=== PATIENT | male | born 1940 | race Caucasian/White ===

== ENCOUNTER 2022-11-20 07:50 | Inpatient (IN) | payer OTHER ==
[2022-11-20 08:11] VITALS: BMI 23.5
[2022-11-20] MEDS ORDERED: ACETAMINOPHEN 1000 MG/100 ML BAG IVPB ONE (08:32)
[2022-11-20] MEDS ORDERED: LACTATED RINGERS SOLUTION 1,000 ML/1,000 ML INFUS.BAG IV STA (08:32)
[2022-11-20] MEDS ORDERED: ACETAMINOPHEN INJECTION 100 ML IVPB ONE (08:44)
[2022-11-20 09:15] LABS: BASO % 0.3 % (0-2.0); EOS % 0.9 % (0-4.5); HEMATOCRIT 38.4 % (35.4-49); HEMOGLOBIN 12.8 GM/dL (11.7-16.9); MCH 30.4 pg (25.7-33.7); MCHC 33.3 g/dl (32.0-35.9); MEAN CELL VOLUME 91.4 fl (80-96); MEAN PLT VOLUME 9.2 fl (7.5-11.1); MONO % 5.2 % (3.8-10.2); NEUT % 89.6 % (42.8-82.8); PLATELET COUNT 127 10^3/uL (134-434); RBC 4.19 M/mm3 (4.00-5.60); RDW 12.6 % (11.9-15.9); WHITE BLOOD COUNT 13.3 K/mm3 (4.0-10.0)
[2022-11-20 09:25] LABS: INR 1.17 (0.83-1.09); PROTHROMBIN TIME (PATIENT) 13.5 SEC (9.7-13.0)
[2022-11-20 09:38] LABS: ALBUMIN 3.6 g/dl (3.4-5.0); BLOOD UREA NITROGEN 45.7 mg/dL (7-18); CALCIUM 9.3 mg/dL (8.5-10.1); POTASSIUM 5.1 mmol/L (3.5-5.1)
[2022-11-20 09:41] LABS: CREATININE 1.9 mg/dL (0.55-1.3)
[2022-11-20 09:43] LABS: BILIRUBIN,TOTAL 1.1 mg/dL (0.2-1); TOT PROT 6.6 g/dl (6.4-8.2)
[2022-11-20] MEDS ORDERED: DEXTROSE 5%-0.45% SALINE 1,000 ML IV SCH (10:30)
[2022-11-20] MEDS ORDERED: ACETAMINOPHEN 1000 MG/100 ML BAG IVPB PRN (10:37)
[2022-11-20] MEDS ORDERED: PANTOPRAZOLE SODIUM 40 MG VIAL IVPUSH SCH (10:45)
[2022-11-20] MEDS ORDERED: CEFTRIAXONE 1,000 MG in DEXTROSE 5%-WATER - 50 ML IVPB ONE (10:48)
[2022-11-20] MEDS ORDERED: CEFTRIAXONE 1 GM/50 ML BAG ONE (11:41)
[2022-11-20] MEDS ORDERED: PANTOPRAZOLE SODIUM 40 MG VIAL ONE (11:41)
[2022-11-20] MEDS ORDERED: HEPARIN NA (PORCINE) 5,000 UNITS/ML 1ML VIAL SQ SCH (14:00)
[2022-11-20] MEDS ORDERED: MIDAZOLAM HCL 2 MG/2 ML SINGLE DOSE VIAL ONE ×2 (15:18→16:38)
[2022-11-20] MEDS ORDERED: PROPOFOL 20 ML ONE (15:18)
[2022-11-20] MEDS ORDERED: PROMETHAZINE HCL 25 MG/1 ML VIAL IVPB PRN ×2 (15:28→17:47)
[2022-11-20] MEDS ORDERED: ONDANSETRON 4 MG/2 ML VIAL IVPUSH PRN ×2 (15:28→17:47)
[2022-11-20] MEDS ORDERED: LACTATED RINGERS SOLUTION 1,000 ML IV SCH (15:30)
[2022-11-20] MEDS ORDERED: SODIUM CHLORIDE 0.9% P/F 10 ML VIAL IJ ONE ×2 (16:02→16:19)
[2022-11-20] MEDS ORDERED: PHENYLEPHRINE HCL 10 MG/1 ML SINGLE DOSE VIAL ONE (16:14)
[2022-11-20] MEDS ORDERED: ceFAZolin SODIUM 1 GM VIAL ONE (16:19)
[2022-11-20] MEDS ORDERED: ceFAZolin SODIUM 1 GM VIAL IVPB ONE (16:20)
[2022-11-20] MEDS: LACTATED RINGERS SOLUTION 1,000 ML IV SCH (17:40)
[2022-11-20 21:01] VITALS: RESP 18
[2022-11-20] MEDS: ACETAMINOPHEN 1000 MG/100 ML BAG IVPB PRN (21:19)
[2022-11-21] MEDS: CEFAZOLIN SODIUM 2 GM in DEXTROSE 5%-WATER 100 ML IVPB SCH ×3 (00:06→16:39)
[2022-11-21] MEDS: LACTATED RINGERS SOLUTION 1,000 ML IV SCH ×4 (01:16→22:49)
[2022-11-21] MEDS: ACETAMINOPHEN 1000 MG/100 ML BAG IVPB PRN (04:42)
[2022-11-21] MEDS ORDERED: CEFAZOLIN SODIUM 2 GM VIAL ONE (06:29)
[2022-11-21] MEDS: ENOXAPARIN NA (PORCINE) 30 MG/0.3 ML DISP.SYRIN SQ SCH (09:21)
[2022-11-21 09:57] LABS: BASO % 0.3 % (0-2.0); EOS % 0.5 % (0-4.5); HEMATOCRIT 32.3 % (35.4-49); HEMOGLOBIN 10.5 GM/dL (11.7-16.9); MCH 30.9 pg (25.7-33.7); MCHC 32.7 g/dl (32.0-35.9); MEAN CELL VOLUME 94.5 fl (80-96); MEAN PLT VOLUME 10.7 fl (7.5-11.1); MONO % 14.2 % (3.8-10.2); PLATELET COUNT 96 10^3/uL (134-434); RBC 3.41 M/mm3 (4.00-5.60); RDW 12.6 % (11.9-15.9); WHITE BLOOD COUNT 8.5 K/mm3 (4.0-10.0)
[2022-11-21] MEDS ORDERED: PANTOPRAZOLE SODIUM 40 MG VIAL IVPUSH SCH (10:00)
[2022-11-21 10:03] LABS: POTASSIUM 4.4 mmol/L (3.5-5.1)
[2022-11-21] MEDS ORDERED: ACETAMINOPHEN 1000 MG/100 ML BAG IVPB PRN (10:08)
[2022-11-21] MEDS ORDERED: DOCUSATE SODIUM 100 MG CAPSULE (FP) PO PRN (10:09)
[2022-11-21 10:15] LABS: CALCIUM 8.6 mg/dL (8.5-10.1)
[2022-11-21 10:17] LABS: BLOOD UREA NITROGEN 38.1 mg/dL (7-18)
[2022-11-21 10:18] LABS: CREATININE 1.9 mg/dL (0.55-1.3)
[2022-11-21 10:19] LABS: TOT PROT 5.6 g/dl (6.4-8.2)
[2022-11-21 10:21] LABS: BILIRUBIN,TOTAL 1.4 mg/dL (0.2-1)
[2022-11-21] MEDS: traMADol HCL 50 MG TABLET PO PRN ×2 (10:31→20:00)
[2022-11-21 12:46] LABS: N-TERMINAL BNP 8204.2 pg/ml (5-450)
[2022-11-21 14:39] LABS: EPI CELLS 7 /uL (0-25.1); HYALINE CASTS 1 /uL (0-3.1); URINE APPEARANCE CLEAR; URINE BACTERIA 2 /uL (0-1359); URINE BILIRUBIN NEGATIVE (NEGATIVE); URINE COLOR YELLOW; URINE GLUCOSE (UA) NEGATIVE (NEGATIVE); URINE KETONE NEGATIVE (NEGATIVE); URINE LEUK ESTERASE TRACE (NEGATIVE); URINE NITRITE NEGATIVE (NEGATIVE); URINE PROTEIN NEGATIVE (NEGATIVE); URINE RBC 34 /uL (0-23.9); URINE UROBILINOGEN 0.2 mg/dL (0.2-1.0); URINE WBC 32 /uL (0-25.8)
[2022-11-21] MEDS ORDERED: PANTOPRAZOLE 40 MG TABLET PO SCH (14:44)
[2022-11-22] MEDS: traMADol HCL 50 MG TABLET PO PRN (10:16)
[2022-11-22] MEDS: ENOXAPARIN NA (PORCINE) 30 MG/0.3 ML DISP.SYRIN SQ SCH (10:17)
[2022-11-22 10:26] LABS: POTASSIUM 4.2 mmol/L (3.5-5.1)
[2022-11-22 10:30] LABS: CALCIUM 8.8 mg/dL (8.5-10.1)
[2022-11-22 10:31] LABS: BASO % 0.2 % (0-2.0); BLOOD UREA NITROGEN 27.8 mg/dL (7-18); EOS % 0.3 % (0-4.5); LYMPH % 6.5 % (8-40); MCH 31.1 pg (25.7-33.7); MCHC 33.4 g/dl (32.0-35.9); MEAN PLT VOLUME 10.5 fl (7.5-11.1); MONO % 12.7 % (3.8-10.2); NEUT % 80.3 % (42.8-82.8); PLATELET COUNT 90 10^3/uL (134-434); RBC 3.22 M/mm3 (4.00-5.60); RDW 12.8 % (11.9-15.9); WHITE BLOOD COUNT 8.7 K/mm3 (4.0-10.0)
[2022-11-22 10:34] LABS: CREATININE 1.4 mg/dL (0.55-1.3)
[2022-11-22] MEDS: LACTATED RINGERS SOLUTION 1,000 ML IV SCH ×2 (13:28→16:59)
[2022-11-22 14:20] VITALS: BP 121/61; PULSE 78; TEMP 97.8
[2022-11-22] MEDS ORDERED: traMADol HCL 50 MG TABLET PO PRN ×2 (14:26→14:40)
== END 2022-11-22 21:36 | DRG 481 ==
LOC: JER 07:50 → JERBED 10:20 → J6S 14:44
PROVIDERS: ADMIT Internal Medicine; ATTEND Internal Medicine
PROC: 0QS70ZZ Reposition Left Upper Femur, Open Approach (ICD-10-PCS; 2022-11-20)
PROC: 0QH706Z Insertion of Intramedullary Internal Fixation Device into Left Upper Femur, Open Approach (ICD-10-PCS; principal; 2022-11-20 15:30)
DX: S72.142A Displaced intertrochanteric fracture of left femur, initial encounter for closed fracture (principal); N17.9 Acute kidney failure, unspecified; R26.81 Unsteadiness on feet; E86.0 Dehydration; Z95.2 Presence of prosthetic heart valve; R55 Syncope and collapse; W17.89XA Other fall from one level to another, initial encounter; Y93.89 Activity, other specified; Y92.89 Other specified places as the place of occurrence of the external cause; Y99.8 Other external cause status; D72.829 Elevated white blood cell count, unspecified; D69.6 Thrombocytopenia, unspecified; D64.9 Anemia, unspecified; S80.212A Abrasion, left knee, initial encounter; I12.9 Hypertensive chronic kidney disease with stage 1 through stage 4 chronic kidney disease, or unspecified chronic kidney disease; N18.9 Chronic kidney disease, unspecified
CPT/HCPCS: 0241U-QW; 36415; 70450-TC; 71045-TC-FY; 72125-TC; 72170-TC-FY; 73502-TC-LT-FY; 73552-TC-LT-FY; 73562-TC-LT-FY; 76000-TC-FY; 76775-TC; 76856-TC; 80048; 80053; 80061; 81003; 82550; 82728; 83036; 83540; 83550; 83880; 84443; 85025; 85610; 86850; 86900; 86901; 93005; 93010; 93306-TC; 94010; 94760; 97116-GP; 97162-GP; 99285-25; C1713

== ENCOUNTER 2022-12-12 12:39 | Inpatient (IN) | payer OTHER ==
[2022-12-12 13:14] VITALS: BMI 28.1
[2022-12-12] MEDS ORDERED: ACETAMINOPHEN 1000 MG/100 ML BAG IVPB ONE (13:35)
[2022-12-12] MEDS ORDERED: ACETAMINOPHEN INJECTION 100 ML IVPB ONE (13:53)
[2022-12-12 15:00] LABS: VENOUS BASE EXCESS -1.3 mmol/L (-2-2); VENOUS O2 SATURATION 63.6 % (70-80); VENOUS PH 7.435 (7.310-7.410)
[2022-12-12 15:17] LABS: BASO % 0.7 % (0-2.0); EOS % 0.2 % (0-4.5); HEMOGLOBIN 11.5 GM/dL (11.7-16.9); LYMPH % 9.4 % (8-40); MCH 31.6 pg (25.7-33.7); MCHC 32.7 g/dl (32.0-35.9); MEAN CELL VOLUME 96.6 fl (80-96); MEAN PLT VOLUME 8.9 fl (7.5-11.1); NEUT % 76.7 % (42.8-82.8); PLATELET COUNT 374 10^3/uL (134-434); RBC 3.62 M/mm3 (4.00-5.60); RDW 17.2 % (11.9-15.9); WHITE BLOOD COUNT 8.8 K/mm3 (4.0-10.0)
[2022-12-12 15:20] LABS: EPI CELLS 34 /uL (0-25.1); HYALINE CASTS 2 /uL (0-3.1); URINE APPEARANCE CLEAR; URINE BACTERIA 2 /uL (0-1359); URINE BILIRUBIN NEGATIVE (NEGATIVE); URINE COLOR DK YELLOW; URINE GLUCOSE (UA) NEGATIVE (NEGATIVE); URINE KETONE 1+ (NEGATIVE); URINE LEUK ESTERASE NEGATIVE (NEGATIVE); URINE NITRITE NEGATIVE (NEGATIVE); URINE PROTEIN 2+ (NEGATIVE); URINE RBC 14 /uL (0-23.9); URINE UROBILINOGEN 0.2 mg/dL (0.2-1.0); URINE WBC 11 /uL (0-25.8)
[2022-12-12 15:25] LABS: INR 1.15 (0.83-1.09); PROTHROMBIN TIME (PATIENT) 13.3 SEC (9.7-13.0)
[2022-12-12 15:28] LABS: ACTIVATED PTT 25.2 SECONDS (25.2-36.5)
[2022-12-12 21:12] LABS: POTASSIUM 4.2 mmol/L (3.5-5.1)
[2022-12-12 21:16] LABS: BLOOD UREA NITROGEN 16.2 mg/dL (7-18); CALCIUM 9.2 mg/dL (8.5-10.1)
[2022-12-12 21:17] LABS: ALBUMIN 3.2 g/dl (3.4-5.0)
[2022-12-12 21:20] LABS: CREATININE 1.5 mg/dL (0.55-1.3)
[2022-12-12 21:21] LABS: TOT PROT 6.4 g/dl (6.4-8.2)
[2022-12-12 21:22] LABS: BILIRUBIN,TOTAL 1.3 mg/dL (0.2-1)
[2022-12-12] MEDS ORDERED: DOCUSATE SODIUM 100 MG CAPSULE (FP) PO PRN (22:02)
[2022-12-12] MEDS ORDERED: PANTOPRAZOLE 40 MG TABLET PO SCH (22:03)
[2022-12-12] MEDS ORDERED: ACETAMINOPHEN 325 MG TABLET (FP) PO PRN (22:03)
[2022-12-12] MEDS ORDERED: traMADol HCL 50 MG TABLET PO PRN (22:04)
[2022-12-12] MEDS ORDERED: FUROSEMIDE 40 MG/4 ML INJECTABLE VIAL IVPUSH ONE (23:03)
[2022-12-12] MEDS ORDERED: LORazepam 2 MG/ML SDV VIAL IVPUSH PRN (23:09)
[2022-12-12] MEDS ORDERED: PANTOPRAZOLE SODIUM 40 MG VIAL IVPUSH ONE (23:30)
[2022-12-13 08:51] LABS: MCH 32.1 pg (25.7-33.7); MCHC 33.4 g/dl (32.0-35.9); MEAN CELL VOLUME 95.9 fl (80-96); MEAN PLT VOLUME 9.2 fl (7.5-11.1); PLATELET COUNT 361 10^3/uL (134-434); RBC 3.75 M/mm3 (4.00-5.60); RDW 16.7 % (11.9-15.9); WHITE BLOOD COUNT 12.2 K/mm3 (4.0-10.0)
[2022-12-13 09:42] LABS: ANISOCYTOSIS 0; HELMET CELLS 0; HOWELL-JOLLY BODIES 0; MACROCYTOSIS 0; OVALOCYTE 0; ROULEAU 0; SICKELED CELLS 0; TARGET CELLS 0; TEAR DROP CELLS 0; TOXIC GRANULATION 0
[2022-12-13] MEDS: PANTOPRAZOLE SODIUM 40 MG VIAL IVPUSH SCH (10:09)
[2022-12-13] MEDS: ENOXAPARIN NA (PORCINE) 40 MG/0.4 ML DISP.SYRIN SQ SCH (10:09)
[2022-12-13] MEDS ORDERED: FUROSEMIDE 40 MG/4 ML INJECTABLE VIAL IVPUSH ONE (10:33)
[2022-12-13] MEDS ORDERED: LORazepam 2 MG/ML SDV VIAL IVPUSH PRN (16:39)
[2022-12-14 07:51] LABS: BASO % 0.3 % (0-2.0); EOS % 0.2 % (0-4.5); HEMATOCRIT 35.4 % (35.4-49); HEMOGLOBIN 11.6 GM/dL (11.7-16.9); LYMPH % 4.4 % (8-40); MCH 31.8 pg (25.7-33.7); MCHC 32.7 g/dl (32.0-35.9); MEAN CELL VOLUME 97.2 fl (80-96); MEAN PLT VOLUME 9.1 fl (7.5-11.1); MONO % 10.9 % (3.8-10.2); NEUT % 84.2 % (42.8-82.8); PLATELET COUNT 338 10^3/uL (134-434); RBC 3.64 M/mm3 (4.00-5.60); RDW 15.7 % (11.9-15.9); WHITE BLOOD COUNT 11.4 K/mm3 (4.0-10.0)
[2022-12-14 08:49] LABS: ERYTHROCYTE SEDIMENTATION RATE 79 mm/hr (0-20)
[2022-12-14] MEDS: ENOXAPARIN NA (PORCINE) 40 MG/0.4 ML DISP.SYRIN SQ SCH (10:59)
[2022-12-14] MEDS: PANTOPRAZOLE SODIUM 40 MG VIAL IVPUSH SCH (10:59)
[2022-12-14] MEDS: FUROSEMIDE 40 MG/4 ML INJECTABLE VIAL IVPUSH SCH (13:11)
[2022-12-14] MEDS: QUEtiapine FUMARATE 25 MG TABLET PO SCH (22:40)
[2022-12-15 09:09] LABS: BASO % 0.4 % (0-2.0); HEMATOCRIT 35.2 % (35.4-49); HEMOGLOBIN 11.7 GM/dL (11.7-16.9); LYMPH % 8.8 % (8-40); MCH 32.4 pg (25.7-33.7); MCHC 33.2 g/dl (32.0-35.9); MEAN CELL VOLUME 97.4 fl (80-96); MEAN PLT VOLUME 9.5 fl (7.5-11.1); MONO % 10.7 % (3.8-10.2); NEUT % 78.1 % (42.8-82.8); PLATELET COUNT 291 10^3/uL (134-434); RBC 3.62 M/mm3 (4.00-5.60); RDW 15.8 % (11.9-15.9); WHITE BLOOD COUNT 8.2 K/mm3 (4.0-10.0)
[2022-12-15 09:19] LABS: POTASSIUM 3.6 mmol/L (3.5-5.1)
[2022-12-15 09:28] LABS: CALCIUM 9.6 mg/dL (8.5-10.1)
[2022-12-15 09:29] LABS: BLOOD UREA NITROGEN 27.8 mg/dL (7-18)
[2022-12-15 09:32] LABS: CREATININE 1.7 mg/dL (0.55-1.3)
[2022-12-15] MEDS ORDERED: DONEPEZIL HCL 10 MG TABLET (FP) PO SCH (10:00)
[2022-12-15] MEDS: ENOXAPARIN NA (PORCINE) 40 MG/0.4 ML DISP.SYRIN SQ SCH (10:52)
[2022-12-15] MEDS: FUROSEMIDE 40 MG/4 ML INJECTABLE VIAL IVPUSH SCH (10:53)
[2022-12-15] MEDS: PANTOPRAZOLE SODIUM 40 MG VIAL IVPUSH SCH (10:53)
[2022-12-15] MEDS ORDERED: QUEtiapine FUMARATE 25 MG TABLET PO SCH (22:00)
[2022-12-15] MEDS: QUEtiapine FUMARATE 25 MG TABLET PO SCH (23:19)
[2022-12-16 08:17] LABS: BASO % 0.8 % (0-2.0); EOS % 4.8 % (0-4.5); HEMATOCRIT 36.2 % (35.4-49); HEMOGLOBIN 12.3 GM/dL (11.7-16.9); LYMPH % 12.1 % (8-40); MCH 32.2 pg (25.7-33.7); MEAN CELL VOLUME 94.7 fl (80-96); MEAN PLT VOLUME 8.8 fl (7.5-11.1); MONO % 12.2 % (3.8-10.2); NEUT % 70.1 % (42.8-82.8); PLATELET COUNT 288 10^3/uL (134-434); RBC 3.82 M/mm3 (4.00-5.60); RDW 15.8 % (11.9-15.9); WHITE BLOOD COUNT 5.5 K/mm3 (4.0-10.0)
[2022-12-16 08:31] LABS: POTASSIUM 3.5 mmol/L (3.5-5.1)
[2022-12-16] MEDS ORDERED: POTASSIUM CHLORIDE TABS 20 MEQ TABLET.ER (FP) PO ONE (08:32)
[2022-12-16 08:42] LABS: BLOOD UREA NITROGEN 31.5 mg/dL (7-18); MAGNESIUM 1.8 mg/dL (1.8-2.4)
[2022-12-16 08:44] LABS: CREATININE 1.5 mg/dL (0.55-1.3)
[2022-12-16 08:58] LABS: ERYTHROCYTE SEDIMENTATION RATE 67 mm/hr (0-20)
[2022-12-16] MEDS ORDERED: MAGNESIUM SULF 50% (8.12 MEQ/2 ML-1 GM VIAL) IVPB ONE (09:32)
[2022-12-16] MEDS ORDERED: FUROSEMIDE 40 MG/4 ML INJECTABLE VIAL IVPUSH ONE (11:34)
[2022-12-16] MEDS: PANTOPRAZOLE SODIUM 40 MG VIAL IVPUSH SCH (13:18)
[2022-12-16] MEDS: ENOXAPARIN NA (PORCINE) 40 MG/0.4 ML DISP.SYRIN SQ SCH (13:18)
[2022-12-16] MEDS: PANTOPRAZOLE 40 MG TABLET PO SCH (14:10)
[2022-12-16] MEDS: QUEtiapine FUMARATE 25 MG TABLET PO SCH (21:03)
[2022-12-17 00:06] LABS: TRAMADOL UR SCREEN Positive ng/mL (Cutoff=200)
[2022-12-17 07:13] LABS: BASO % 0.8 % (0-2.0); EOS % 3.2 % (0-4.5); HEMATOCRIT 37.2 % (35.4-49); HEMOGLOBIN 12.1 GM/dL (11.7-16.9); LYMPH % 10.5 % (8-40); MCH 31.6 pg (25.7-33.7); MCHC 32.6 g/dl (32.0-35.9); MEAN PLT VOLUME 9.3 fl (7.5-11.1); MONO % 12.1 % (3.8-10.2); NEUT % 73.4 % (42.8-82.8); PLATELET COUNT 281 10^3/uL (134-434); RBC 3.84 M/mm3 (4.00-5.60); RDW 15.6 % (11.9-15.9); WHITE BLOOD COUNT 6.6 K/mm3 (4.0-10.0)
[2022-12-17 08:03] LABS: POTASSIUM 3.8 mmol/L (3.5-5.1)
[2022-12-17 08:06] LABS: BLOOD UREA NITROGEN 32.3 mg/dL (7-18); CALCIUM 9.9 mg/dL (8.5-10.1)
[2022-12-17 08:09] LABS: CREATININE 1.6 mg/dL (0.55-1.3)
[2022-12-17] MEDS ORDERED: DOCUSATE SODIUM 100 MG CAPSULE (FP) PO PRN (08:44)
[2022-12-17] MEDS ORDERED: ACETAMINOPHEN 325 MG TABLET (FP) PO PRN (08:48)
[2022-12-17] MEDS ORDERED: FUROSEMIDE 40 MG/4 ML INJECTABLE VIAL IVPUSH ONE (11:00)
[2022-12-17] MEDS: ENOXAPARIN NA (PORCINE) 40 MG/0.4 ML DISP.SYRIN SQ SCH (11:21)
[2022-12-17] MEDS: PANTOPRAZOLE 40 MG TABLET PO SCH (11:21)
[2022-12-17] MEDS ORDERED: QUEtiapine FUMARATE 25 MG TABLET PO SCH (22:00)
[2022-12-18 06:41] LABS: BASO % 0.9 % (0-2.0); EOS % 4.3 % (0-4.5); HEMATOCRIT 37.3 % (35.4-49); HEMOGLOBIN 12.4 GM/dL (11.7-16.9); LYMPH % 14.4 % (8-40); MCH 31.8 pg (25.7-33.7); MCHC 33.2 g/dl (32.0-35.9); MEAN CELL VOLUME 95.7 fl (80-96); MEAN PLT VOLUME 9.5 fl (7.5-11.1); MONO % 14.4 % (3.8-10.2); PLATELET COUNT 272 10^3/uL (134-434); RDW 15.3 % (11.9-15.9); WHITE BLOOD COUNT 5.7 K/mm3 (4.0-10.0)
[2022-12-18 07:06] LABS: POTASSIUM 3.5 mmol/L (3.5-5.1)
[2022-12-18 07:10] LABS: BLOOD UREA NITROGEN 37.8 mg/dL (7-18); CALCIUM 9.7 mg/dL (8.5-10.1)
[2022-12-18 07:14] LABS: CREATININE 1.8 mg/dL (0.55-1.3)
[2022-12-18] MEDS ORDERED: POTASSIUM CHLORIDE TABS 20 MEQ TABLET.ER (FP) PO ONE (08:34)
[2022-12-18] MEDS ORDERED: FUROSEMIDE 40 MG/4 ML INJECTABLE VIAL IVPUSH ONE (08:35)
[2022-12-18] MEDS: ENOXAPARIN NA (PORCINE) 40 MG/0.4 ML DISP.SYRIN SQ SCH (09:39)
[2022-12-18] MEDS: PANTOPRAZOLE 40 MG TABLET PO SCH (09:39)
[2022-12-18 15:18] VITALS: BP 152/79; PULSE 85; RESP 20; TEMP 98.5
[2022-12-19] MEDS ORDERED: FUROSEMIDE 20 MG TABLET (FP) PO SCH (11:30)
== END 2022-12-18 20:25 | DRG 291 ==
LOC: JER 12:39 → JERBED 21:57 → J4W 23:07 → J7W 12-16 21:57
PROVIDERS: ADMIT Internal Medicine; ATTEND Internal Medicine
DX: I13.0 Hypertensive heart and chronic kidney disease with heart failure and stage 1 through stage 4 chronic kidney disease, or unspecified chronic kidney disease (principal); I50.33 Acute on chronic diastolic (congestive) heart failure; J81.1 Chronic pulmonary edema; I24.8 Other forms of acute ischemic heart disease; N18.9 Chronic kidney disease, unspecified; K21.9 Gastro-esophageal reflux disease without esophagitis; F41.8 Other specified anxiety disorders; G30.9 Alzheimer's disease, unspecified; F02.80 Dementia in other diseases classified elsewhere, unspecified severity, without behavioral disturbance, psychotic disturbance, mood disturbance, and anxiety; R62.7 Adult failure to thrive; Z68.28 Body mass index [BMI] 28.0-28.9, adult; R26.2 Difficulty in walking, not elsewhere classified; M62.81 Muscle weakness (generalized); Z95.0 Presence of cardiac pacemaker; Z95.2 Presence of prosthetic heart valve
CPT/HCPCS: 0241U-QW; 36415; 70450-TC; 71045-TC-FY; 71250-TC; 80048; 80053; 80307; 81003; 82550; 82553; 82607; 82803; 83605; 83735; 84443; 84484; 85025; 85610; 85651; 85730; 86140; 86780; 86850; 86900; 86901; 87040; 87086; 87635; 93005; 93010; 94010; 97116-GP; 97162-GP; 99285-25

== ENCOUNTER 2022-12-22 20:59 | Emergency (ER) | payer OTHER ==
[2022-12-22 21:07] VITALS: BP 109/69; PULSE 67; RESP 18; TEMP 97.4; BMI 18.3
[2022-12-22] MEDS ORDERED: DIPHTH,PERTUSS(ACELL),TET 0.5 ML DISP.SYRIN IM ONE (21:46)
[2022-12-22] MEDS ORDERED: TETANUS AND DIPHTHERIA TOXOID 0.5 ML DISP.SYRIN IM ONE (21:50)
== END 2022-12-23 04:16 ==
LOC: FER 20:59
PROC: 0HQHXZZ Repair Right Upper Leg Skin, External Approach (ICD-10-PCS; principal; 2022-12-22)
PROC: 3E0234Z Introduction of Serum, Toxoid and Vaccine into Muscle, Percutaneous Approach (ICD-10-PCS; 2022-12-22)
DX: S71.111A Laceration without foreign body, right thigh, initial encounter (principal); R41.82 Altered mental status, unspecified; V00.811A Fall from moving wheelchair (powered), initial encounter; Y92.129 Unspecified place in nursing home as the place of occurrence of the external cause
CPT/HCPCS: 12032; 70450-TC; 71045-TC-FY; 72125-TC; 72170-TC-FY; 90471; 90715; 99284-25